=== PATIENT | female | born 1960 | race Caucasian/White ===

== ENCOUNTER 2016-12-06 09:17 | Day surgery (SDC) | payer MEDICAID ==
[2016-12-05 13:37] VITALS: BMI 31.1
[~2016-12-06 09:17] MED LIST: Lactated Ringer's 1,000 ML IV ONE
[2016-12-06] MEDS ORDERED: cefOXitin IV 1 gm in Dextrose 1 GM/50 ML BAG IVPB ONE (09:58)
[2016-12-06] MEDS ORDERED: Propofol 10 mg/ml Inj (20 ML) ONE ×2 (10:05→10:24)
[2016-12-06] MEDS ORDERED: Midazolam 2 MG/2 ML VIAL ONE ×2 (10:05→10:06)
[2016-12-06] MEDS ORDERED: HYDROmorphone 0.5 mg/0.5 ml ISec IVP PRN (10:46)
--- NOTE | 2016-12-06 10:55 | PCM.SURG1 ---
Surgeon's Initial Post Op Note - Surgeon's Notes Surgeon: dr cobos Washing Machine Repairer: none Type of Anesthesia: Spinal, IV Sedation Anesthesia Administered By: dr parks Pre-Operative Diagnosis: 56 yr with pmb/endometral thickening Operative Findings: see the op reoprt Post-Operative Diagnosis: same with andometral polyp Operation Performed: myasure/d&c, hysterscopy Specimen/Specimens Removed: ecc. emc. polyp Estimated Blood Loss: EBL {In ML}: 20 Blood Products Given: N/A Drains Used: No Drains Post-Op Condition: Good Date of Surgery/Procedure: 12/06/16 Time of Surgery/Procedure: 11:00
[2016-12-06 11:28] VITALS: TEMP 97.2
[2016-12-06 11:43] VITALS: RESP 15
[2016-12-06 12:13] VITALS: BP 100/57; PULSE 58; O2SAT 99
--- NOTE | 2016-12-07 07:54 | OP ---
PREOPERATIVE DIAGNOSIS: A 56-year-old 4 para 4 with postmenopausal bleeding and endometrial thickening. SURGEON: Dr. Kavon Smith. AUTOMOTIVE LUBE TECHNICIAN: None. TYPE OF ANESTHESIA: General. ANESTHESIOLOGIST: Harry Price MD COMPLICATION: None. ESTIMATED BLOOD LOSS: 20 mL. PROCEDURE: MyoSure dilatation and curettage, hysteroscopy. DEFICIT: 150 mL. DESCRIPTION OF PROCEDURE: After informed consent was obtained, the patient was brought to the operating room, placed supine on the table. When anesthesia was given, she was prepped and draped in normal sterile fashion. Examination of the uterus revealed it to be 8-week size, no pelvic masses. The cervix and the uterus was *------*. The lips of the cervix were grasped with a tenaculum. Gentle dilatation of the cervix was done. Hysteroscopy was introduced, and found to have a polyp on the fundal of the cervix which was about 2 cm. A picture was taken and *------* used MyoSure. MyoSure was introduced and then the polyp was removed using MyoSure. After the MyoSure was removed *------* sent to the pathology. After that hysteroscope was introduced again but there was no polyp. Tenaculum was removed. The patient tolerated the procedure well. *------*. Kavon Smith MD
== END 2016-12-06 12:15 | disposition home or self-care (01) ==
LOC: C.SDS 09:17
PROVIDERS: ATTEND Obstetrics & Gynecology
DX: N84.0 Polyp of corpus uteri (principal); N95.0 Postmenopausal bleeding

== ENCOUNTER 2018-07-23 14:50 | Outpatient (CLI) | payer MEDICAID | END 2018-07-23 14:51 | disposition home or self-care (01) | LOC: C.MAMMO 14:51 ==